=== PATIENT | female | born 1995 | race African-American/Black ===

== ENCOUNTER 2019-11-25 20:00 | Inpatient (IN) | payer OTHER ==
[2019-11-25] MEDS ORDERED: LACTATED RINGERS SOLUTION 1000 ML INFUS.BAG IV ONE (20:28)
[2019-11-25] MEDS ORDERED: ACETAMINOPHEN 1000 MG/100 ML VIAL (NON FORMULARY) IVPB ONE (20:28)
[2019-11-25] MEDS ORDERED: ACETAMINOPHEN INJECTION 100 ML IVPB ONE (20:34)
--- NOTE | 2019-11-25 21:07 | PDOC ---
Attending Attestation - Resident Resident Name: Zamzam Robins - ED Attending Attestation I have performed the following: I have examined & evaluated the patient, The case was reviewed & discussed with the resident, I agree w/resident's findings & plan, Exceptions are as noted - HPI HPI: 11/25/19 21:40 Ms Restrepo is a 24 yo F h/o congenital HIV (not currently of HAART per patient due to depression, unknown CD4 or Viral load) Pt 2 months s/p delivery of her child She is unable to see the child until she completes detox program Pt states she has had a cough x 2 weeks No fevers or chills No shortness of breath Pt noted fever today, nausea, vomiting and diarrhea No chest pain Mild lower abdominal pain No vaginal discharge No dysuria, no flank pain No headache 11/25/19 21:44 - Physicial Exam PE: 11/25/19 21:07 GENERAL: The patient is in no acute distress. ENT: Ears normal, nares patent, oropharynx clear without exudates. Moist mucous membranes. NECK: Normal range of motion, supple LUNGS: Breath sounds equal, clear to auscultation bilaterally. No wheezes, and no crackles. HEART:Regular rate and rhythm, normal S1 and S2 without murmur, rub or gallop. ABDOMEN: Soft, nontender, normoactive bowel sounds. EXTREMITIES: Normal range of motion, no edema. NEUROLOGICAL: Cranial nerves II through XII grossly intact. Normal speech. No focal neurological deficits. SKIN: Warm, Dry, normal turgor, no rashes or lesions noted. - Medical Decision Making 11/25/19 22:01 Laboratory Tests 11/25/19 11/25/19 11/25/19 21:00 21:00 21:00 WBC Hgb Hct Plt Count INR 0.96 VBG pH POC VBG pCO2 POC VBG pO2 BUN Creatinine Lactic Acid Troponin I < 0.02 Influenza A (Rapid) Positive A 11/25/19 11/25/19 11/25/19 21:00 21:00 21:00 WBC 7.4 Hgb 11.4 Hct 34.4 Plt Count 178 INR VBG pH POC VBG pCO2 POC VBG pO2 BUN 9.2 Creatinine 0.8 Lactic Acid 0.7 Troponin I Influenza A (Rapid) 11/25/19 21:00 WBC Hgb Hct Plt Count INR VBG pH 7.41 POC VBG pCO2 37.4 L POC VBG pO2 55.4 H BUN Creatinine Lactic Acid Troponin I Influenza A (Rapid) influenza (+) Will plan to Admit Clinical impression: HIV +, Influenza
[2019-11-25 21:21] LABS: BASO % 0.3 % (0-2.0); EOS % 0.9 % (0-4.5); HEMATOCRIT 34.4 % (32.4-45.2); HEMOGLOBIN 11.4 GM/dL (10.7-15.3); LYMPH % 48.1 % (8-40); MCH 30.8 pg (25.7-33.7); MEAN CELL VOLUME 93.6 fl (80-96); MEAN PLT VOLUME 8.3 fl (7.5-11.1); MONO % 17.2 % (3.8-10.2); NEUT % 33.5 % (42.8-82.8); PLATELET COUNT 178 K/MM3 (134-434); RBC 3.68 M/mm3 (3.60-5.2); RDW 14.6 % (11.6-15.6); WHITE BLOOD COUNT 7.4 K/mm3 (4.0-10.0)
[2019-11-25 21:24] LABS: VENOUS PC02 37.4 mmHg (38-52); VENOUS PH 7.41 (7.31-7.41); VENOUS PO2 55.4 mmHg (28-48)
[2019-11-25] MEDS ORDERED: ALBUTEROL SO4 0.083% IH SOL 2.5 MG/3 ML VIAL.NEB. NEB ONE ×2 (21:25→22:18)
--- NOTE | 2019-11-25 21:34 | PDOC ---
History of Present Illness - General Chief Complaint: Respiratory Stated Complaint: FEVER Time Seen by Provider: 11/25/19 20:18 History Source: Patient Exam Limitations: No Limitations - History of Present Illness Initial Comments: 11/25/19 21:30 24y F with PMH of HIV since , Asthma, substance use presenting to ED from [facility] for evaluation of fever, cough, congestion, sore throat, n/v/d. Patient states that for the past week she has been having cough and SOB but the n/v/d started this AM. Patient states that last night she drank a bottle of [employer] ice tea. She last used cocaine a few weeks ago and uses marijuana daily. She gave 2 months ago and was told that if she does not go to a detox program then she cannot see her son. She states that she stopped taking HAART after the of her son. Last recalls the viral load being 71. Had an appointment last month where viral load and CD4 counts were checked but she does not remember. Denies syncope, bloody stool, hematemesis, hemoptysis, urinary symptoms. PMD: PMH: see hpi PSH: Meds: none Allergies: nkda Social: cocaine, marijuana, alcohol Past History - Past Medical History Allergies/Adverse Reactions: Allergies Allergy/AdvReac Type Severity Reaction Status Date / Time No Known Allergies Allergy Verified 11/25/19 20:20 Home Medications: Ambulatory Orders Abacavir/Dolutegravir/Lamivudi [Triumeq Tablet] 1 each PO DAILY 11/25/19 Ferrous Sulfate [Iron] 325 mg PO BID 11/25/19 Quetiapine Fumarate [Seroquel -] 200 mg PO HS 11/25/19 Asthma: Yes COPD: No - Psycho Social/Smoking Cessation Hx Smoking History: Unknown if ever smoked Review of Systems - Review of Systems Constitutional: Yes: Chills, Fever, Weakness HEENTM: Yes: Nose Congestion, Throat Pain Respiratory: Yes: Cough, Shortness of Breath Cardiac (ROS): No: Chest Pain, Lightheadedness, Palpitations, Syncope ABD/GI: Yes: Diarrhea, Nausea, Vomiting : No: Symptoms Reported Musculoskeletal: No: Symptoms Reported Integumentary: No: Symptoms Reported Neurological: No: Symptoms reported Psychiatric: Yes: Depression *Physical Exam - Vital Signs Last Vital Signs Temp Pulse Resp BP Pulse Ox 100.2 F H 96 H 18 138/93 100 11/25/19 20:18 11/25/19 20:18 11/25/19 20:18 11/25/19 20:18 11/25/19 20:18 - Physical Exam General Appearance: Yes: Appropriately Dressed, Disheveled. No: Apparent Distress HEENT: positive: EOMI, BRANDON, Pharynx Normal. negative: Pharyngeal Erythema, Tonsillar Exudate, Tonsillar Erythema, Thrush Neck: positive: Trachea midline, Supple. negative: Lymphadenopathy (R), Lymphadenopathy (L) Respiratory/Chest: positive: Lungs Clear, Normal Breath Sounds. negative: Respiratory Distress, Crackles, Rales, Rhonchi, Stridor Cardiovascular: positive: Regular Rhythm, S1, S2, Tachycardia. negative: Edema , JVD, Murmur Vascular Pulses: Dorsalis-Pedis (R): 2+, Doralis-Pedis (L): 2+ Gastrointestinal/Abdominal: positive: Normal Bowel Sounds, Soft, Other ( cesearan scar, well healed). negative: Tender Extremity: positive: Normal Capillary Refill. negative: Pedal Edema, Swelling, Calf Tenderness Integumentary: positive: Normal Color, Dry, Warm. negative: Rash Neurologic: positive: watch train assembler II-XII NML intact, Fully Oriented, Alert, Normal Mood/ Affect, Normal Response, Motor Strength 03/27 ED Treatment Course - LABORATORY CBC & Chemistry Diagram: 11/25/19 21:00 11/25/19 21:00 - ADDITIONAL ORDERS Additional order review: Laboratory Results 11/25/19 21:00 VBG pH 7.41 POC VBG pCO2 37.4 L POC VBG pO2 55.4 H VBG HCO3 23.2 VBG O2 Sat (Anai) 87.3 H VBG Base Excess -0.6 11/25/19 21:00 RBC 3.68 MCV 93.6 MCHC 33.0 RDW 14.6 MPV 8.3 Neutrophils % 33.5 L Lymphocytes % 48.1 H Monocytes % 17.2 H Eosinophils % 0.9 Basophils % 0.3 - RADIOLOGY Radiology Studies Ordered: Category Date Time Status CHEST X-RAY PORTABLE* [RAD] Stat Radiology 11/25/19 20:27 Ordered - Medications Given in the ED: ED Medications Discontinued Medications Generic Name Dose Route Start Last Admin Trade Name Freq PRN Reason Stop Dose Admin Acetaminophen 1,000 mg 11/25/19 20:28 11/25/19 20:32 Ofirmev Injection - IVPB 11/25/19 20:29 1,000 mg ONCE ONE Administration Lactated Ringer's 1,000 ml 11/25/19 20:28 11/25/19 20:32 Lactated Ringers Solution IV 11/25/19 20:29 1,000 ml NOW ONE Administration Medical Decision Making - Medical Decision Making 11/25/19 23:46 24y F with PMH of HIV not compliant with medications, Asthma presenting to ED from [facility] for fever, cough, sore throat, n/v/d. vitals: documented fever of 100.4 at [facility], 100.2 here tachycardic in the 90s. saturating well on RA. ddx includes but not limited to influenza, pcp, cryptococcus, pna, meningitis/ encephalitis, uti, viral illness will obtain sepsis w/u, influenza, cd4 count. iv fluids, ofirmev, albuterol patient is not taking medications, can be immunocompromized, cd4 is a senddout. wbc wnl however low neutrophils. ekg: nsr at 70bpm. no rupesh or deperssions. no twi or hyperacute waves. sono for elevated lfts. unremarkable. pending admission, signed out to Dr. Irving Discharge - Discharge Information Problems reviewed: Yes Clinical Impression/Diagnosis: Influenza A HIV (human immunodeficiency virus infection) Qualifiers: HIV symptom status: unspecified Qualified Code(s): B20 - Human immunodeficiency virus [HIV] disease Condition: Stable - Follow up/Referral - Patient Discharge Instructions - Post Discharge Activity
[2019-11-25 21:54] LABS: INR 0.96 (0.83-1.09); PROTHROMBIN TIME (PATIENT) 11.3 SEC (9.7-13.0)
[2019-11-25 21:57] LABS: ACTIVATED PTT 28.3 SECONDS (25.2-36.5); ALBUMIN 3.4 g/dl (3.4-5.0); BILIRUBIN,TOTAL 0.3 mg/dL (0.2-1); BLOOD UREA NITROGEN 9.2 mg/dL (7-18); CALCIUM 8.4 mg/dL (8.5-10.1); CREATININE 0.8 mg/dL (0.55-1.3); TOT PROT 7.8 g/dl (6.4-8.2)
[2019-11-25 21:58] LABS: POTASSIUM 4.6 mmol/L (3.5-5.1)
[2019-11-25] MEDS ORDERED: OSELTAMIVIR PHOSPHATE 75 MG CAPSULE PO ONE (22:07)
[2019-11-25] MEDS ORDERED: OSELTAMIVIR PHOSPHATE 75 MG CAPSULE ONE (22:19)
[2019-11-25] MEDS ORDERED: VANCOMYCIN 1 GM in D5W (PRE-DOCKED) 1,000 MG/250 ML IVPB ONE (23:23)
[2019-11-25] MEDS ORDERED: PIPERACILLIN/TAZOB 3.375 GM 3.375 GM in DEXTROSE 5%-WATER - 50 ML IVPB ONE (23:23)
--- NOTE | 2019-11-25 23:44 | PN ---
Teaching Attending Note Name of Resident: Leonila Murdock ATTENDING PHYSICIAN STATEMENT I saw and evaluated the patient. I reviewed the resident's note and discussed the case with the resident. I agree with the resident's findings and plan as documented. SUBJECTIVE: Patient is a 24 year old woman with PMH of HIV since , Asthma and Substance abuse (cocaine, marijuana, alcohol) presenting to ER from [facility] for evaluation of fever, cough, congestion, sore throat, nausea, vomiting and diarrhea. Patient states that for the past week she has been having cough and SOB but the nausea, vomiting and diarrhea started this AM. Patient states that last night she drank a bottle of [employer] ice tea. She last used cocaine a few weeks ago and uses marijuana daily. She gave 2 months ago and was told that if she does not go to a detox program then she cannot see her son. She states that she stopped taking HAART after the of her son. Last recalls the viral load being 71. Had an appointment last month where viral load and CD4 counts were checked but she does not remember. Denies syncope, bloody stool, hematemesis, hemoptysis, urinary symptoms. OBJECTIVE: Alert Vital Signs Period Temp Pulse Resp BP Sys/Zamora Pulse Ox Last 24 Hr 100.2 F 96 18 138/93 100 HEENT: No Jaundice, eye redness or discharge, PERRLA, EOMI. Normocephalic, atraumatic. External ears are normal and hearing is grossly intact. No nasal discharge. Neck: Supple, nontender. No palpable adenopathy or thyromegaly. No JVD Chest: Good effort. Clear to auscultation and percussion. Heart: Regular. No S3, rub or murmur Abdomen: Not distended, soft, nontender and no HSM. No rebound or guarding. Normal bowel sounds. Ext: Peripheral pulses intact. No leg edema. Skin: Warm and dry. No petechiae, rash or ecchymosis. Neuro: Alert. Oriented x3. CN 2-12 grossly intact. Sensation grossly intact in all four extremities and DTR are symmetric. Psych: Appropriate mood and affect. Good insight. Current Medications Generic Name Dose Route Start Last Admin Trade Name Freq PRN Reason Stop Dose Admin Piperacillin Sod/Tazobactam 50 mls @ 100 mls/hr 11/25/19 23:23 Sod 3.375 gm/ Dextrose IVPB 11/25/19 23:52 ONCE ONE Protocol Home Medications Medication Instructions Recorded Abacavir/Dolutegravir/Lamivudi 1 each PO DAILY 11/25/19 [Triumeq Tablet] Ferrous Sulfate [Iron] 325 mg PO BID 11/25/19 Quetiapine Fumarate [Seroquel -] 200 mg PO HS 11/25/19 Abnormal Lab Results 11/25/19 11/25/19 11/25/19 21:00 21:00 21:00 Neutrophils % 33.5 L Lymphocytes % 48.1 H Monocytes % 17.2 H POC VBG pCO2 POC VBG pO2 VBG O2 Sat (Anai) Chloride 108 H Anion Gap 6 L Calcium 8.4 L AST 103 H ALT 90 H Influenza A (Rapid) Positive A 11/25/19 21:00 Neutrophils % Lymphocytes % Monocytes % POC VBG pCO2 37.4 L POC VBG pO2 55.4 H VBG O2 Sat (Anai) 87.3 H Chloride Anion Gap Calcium AST ALT Influenza A (Rapid) ASSESSMENT AND PLAN: 1. Influenza A Infection - No acute abnormality on CXR. Sepsis workup done. Urinalysis pending but here is no indication for antibiotics at this time. Started on Tamiflu and IV NS and placed on isolation. Will trend LFTs and get hepatitis serology. Upper abdominal sonogram showed mild hepatomegaly. Viral load and CD4 count pending. Will send any diarrheal stool for analysis including C.Diff, ova&parasites and cryptosporidium. EKG shows NSR with no significant changes. Will continue comprehensive care for all of patients comorbid conditions. 2. Alcohol/Drug abuse - Monitor closely for drug withdrawal. Implement [facility] alcohol withdrawal protocol and do neurochecks. Implement seizure, fall and aspiration precautions. Treat with thiamine and folic acid and monitor electrolytes (Ca,Mg,K,P). Counseled patient about abstaining from illicit drugs and alcohol. Will consult artillery specialist and refer to drug/alcohol detox upon discharge. 3. DVT prophylaxis - Lovenox 40 mg SQ q 24 hours. 4. Advance directives - Full code
[2019-11-25] MEDS ORDERED: PIPERACILLIN/TAZOB 3.375 GM 3.375 GM/50 ML BAG IVPB ONE (23:48)
[2019-11-26] MEDS ORDERED: VANCOMYCIN 1 GRAM (PRE-DOCKED) 1,000 MG/250 ML BAG IVPB ONE (00:45)
--- NOTE | 2019-11-26 00:47 | PDOC ---
*Physical Exam - Vital Signs Last Vital Signs Temp Pulse Resp BP Pulse Ox 100.2 F H 96 H 18 138/93 100 11/25/19 20:18 11/25/19 20:18 11/25/19 20:18 11/25/19 20:18 11/25/19 20:18 - Physical Exam MDM: 26 Nov 2019 00:46 AM Received sign out from resident Dr. Robins. In short, pt is a 24 y/o female presenting with fever w/ nausea, vomiting, diarrhea, cough, and SOB. URI symptoms for the past week. GI symptoms started this week. Flu A positive. Not septic. Received Vancomycin, Zosyn, and Tamiflu for anti infectives. Will f/u pending admission for influenza in setting of HIV. 26 Nov 2019 01:18 AM Telephone discussion with resident Dr. Chi. Verbally appraised of the pts HPI, ED course, and current plan of management. Will accept the pt to med/surg on observational status for attending Dr. Irvin. ED Treatment Course - LABORATORY CBC & Chemistry Diagram: 11/25/19 21:00 11/25/19 21:00 - ADDITIONAL ORDERS Additional order review: Laboratory Results 11/25/19 11/25/19 11/25/19 21:00 21:00 21:00 PT with INR INR PTT (Actin FS) VBG pH 7.41 POC VBG pCO2 37.4 L POC VBG pO2 55.4 H VBG HCO3 23.2 VBG O2 Sat (Anai) 87.3 H VBG Base Excess -0.6 Sodium 138 Potassium 4.6 Chloride 108 H Carbon Dioxide 24 Anion Gap 6 L BUN 9.2 Creatinine 0.8 Est GFR (CKD-EPI)AfAm 121.29 Est GFR (CKD-EPI)NonAf 104.65 Random Glucose 86 Lactic Acid 0.7 Calcium 8.4 L Total Bilirubin 0.3 AST 103 H ALT 90 H Alkaline Phosphatase 87 Troponin I Total Protein 7.8 Albumin 3.4 Serum , Qual 11/25/19 11/25/19 11/25/19 21:00 21:00 21:00 PT with INR 11.30 INR 0.96 PTT (Actin FS) 28.3 VBG pH POC VBG pCO2 POC VBG pO2 VBG HCO3 VBG O2 Sat (Anai) VBG Base Excess Sodium Potassium Chloride Carbon Dioxide Anion Gap BUN Creatinine Est GFR (CKD-EPI)AfAm Est GFR (CKD-EPI)NonAf Random Glucose Lactic Acid Calcium Total Bilirubin AST ALT Alkaline Phosphatase Troponin I < 0.02 Total Protein Albumin Serum , Qual Negative 11/25/19 21:00 RBC 3.68 MCV 93.6 MCHC 33.0 RDW 14.6 MPV 8.3 Neutrophils % 33.5 L Lymphocytes % 48.1 H Monocytes % 17.2 H Eosinophils % 0.9 Basophils % 0.3 - RADIOLOGY Radiograph Interpretation: RUQ U/S: THIS IS A PRELIMINARY REPORT FROM [facility] DATE OF SERVICE: 2019-11-25 23:33:57 IMAGES: 34 EXAM: ABDOMEN US -LIMITED HISTORY: Elevated LFTs, vomiting COMPARISON: None. FINDINGS: Mild hepatomegaly No echogenic gallstones, gallbladder wall thickening, or pericholecystic fluid Normal common bile duct The pancreas is unremarkable No echogenic calculi or hydronephrosis within the right kidney No ascites THIS DOCUMENT HAS BEEN ELECTRONICALLY SIGNED Jose Luis Lujan MD 11/26/2019 00:05 EST - Medications Given in the ED: ED Medications Discontinued Medications Generic Name Dose Route Start Last Admin Trade Name Freq PRN Reason Stop Dose Admin Acetaminophen 1,000 mg 11/25/19 20:28 11/25/19 20:32 Ofirmev Injection - IVPB 11/25/19 20:29 1,000 mg ONCE ONE Administration Albuterol Sulfate 1 amp 11/25/19 21:25 11/25/19 22:18 Ventolin 0.083% Nebulizer Soln - NEB 11/25/19 21:26 1 amp ONCE ONE Administration Piperacillin Sod/Tazobactam 50 mls @ 100 mls/hr 11/25/19 23:23 11/26/19 00:35 Sod 3.375 gm/ Dextrose IVPB 11/25/19 23:52 100 mls/hr ONCE ONE Administration Protocol Lactated Ringer's 1,000 ml 11/25/19 20:28 11/25/19 20:32 Lactated Ringers Solution IV 11/25/19 20:29 1,000 ml NOW ONE Administration Oseltamivir Phosphate 75 mg 11/25/19 22:07 11/25/19 22:18 Tamiflu - PO 11/25/19 22:08 75 mg ONCE ONE Administration Discharge - Discharge Information Problems reviewed: Yes Clinical Impression/Diagnosis: Influenza A HIV (human immunodeficiency virus infection) Qualifiers: HIV symptom status: unspecified Qualified Code(s): B20 - Human immunodeficiency virus [HIV] disease Condition: Stable - Admission Yes - Follow up/Referral - Patient Discharge Instructions - Post Discharge Activity
--- NOTE | 2019-11-26 01:56 | HP ---
CHIEF COMPLAINT: cough, vomiting/diarrhea HISTORY OF PRESENT ILLNESS: Ms. Restrepo is a 24y/o female with HIV (off HAART 2 months, unknown CD4, since ), asthma, and polysubstance use who presents from [facility] with cough x 2 weeks. She reports it is sometimes productive with whitish, yellowish, or brownish sputum. She has associated chest tightness with cough as well as shortness of breath. She denies wheezing. She reports fever and chills. She previously had sinus congestion and sore throat which are resolved. She also reports nausea, vomiting, and diarrhea that began the evening of the 3rd. She denies abdominal pain or blood in vomit or stool. She is unable to quantify the number of times she has vomited or had diarrhea. She was at [facility] for evaluation of alcohol, cocaine, and marijuana use. She reports she was told if she did not go to rehab that she would not be able to see her 2 month old son, Gage. She was upset by this and drank a bottle of [employer] iced tea but she does not normally drink alcohol. She smokes marijuana daily. Her last cocaine use was several weeks ago. Pt stopped HAART after the of her son 2 months ago. She could not state why she was not taking it. Her ID dr is in [place]. ER course was notable for: (1) influenza A positive (2) mild transaminitis with mild hepatomegaly (3) Tamiflu, Vancomycin, Zosyn PAST MEDICAL HISTORY: see above PAST SURGICAL HISTORY: Social History: Smoking: denies Alcohol: denies regular use Drugs: marijuana and cocaine Pt lives alone in apartment with son. The child is currently staying with the father. Allergies No Known Allergies Allergy (Verified 11/25/19 20:20) HOME MEDICATIONS: none REVIEW OF SYSTEMS see HPI PHYSICAL EXAMINATION Vital Signs - 24 hr 11/25/19 20:18 Temperature 100.2 F H Pulse Rate 96 H Respiratory 18 Rate Blood Pressure 138/93 O2 Sat by Pulse 100 Oximetry (%) GENERAL: Awake, alert, and fully oriented, in mild distress. HEAD: Normal with no signs of trauma. EYES: Pupils equal, round and reactive to light, extraocular movements intact, conjunctiva clear. EARS, NOSE, THROAT: Ears normal, nares patent, dry mucous membranes. NECK: Normal range of motion LUNGS: Right lower lobe expiratory wheezing. No accessory muscle use. HEART: Regular rate and rhythm, no murmur ABDOMEN: Soft, nontender, not distended, normoactive bowel sounds MUSCULOSKELETAL: Normal range of motion of extremities UPPER EXTREMITIES: Warm, well-perfused. No peripheral edema. LOWER EXTREMITIES: Warm, well-perfused. No peripheral edema. NEUROLOGICAL: Cranial nerves II-XII intact. Normal speech. PSYCHIATRIC: Tearful, anxious SKIN: Warm, dry, normal turgor Laboratory Results - last 24 hr 11/25/19 11/25/19 11/25/19 21:00 21:00 21:00 WBC RBC Hgb Hct MCV MCH MCHC RDW Plt Count MPV Absolute Neuts (auto) Neutrophils % Lymphocytes % Monocytes % Eosinophils % Basophils % Nucleated RBC % PT with INR 11.30 INR 0.96 PTT (Actin FS) 28.3 VBG pH POC VBG pCO2 POC VBG pO2 VBG HCO3 VBG O2 Sat (Anai) VBG Base Excess Sodium Potassium Chloride Carbon Dioxide Anion Gap BUN Creatinine Est GFR (CKD-EPI)AfAm Est GFR (CKD-EPI)NonAf Random Glucose Lactic Acid Calcium Total Bilirubin AST ALT Alkaline Phosphatase Troponin I < 0.02 Total Protein Albumin Serum , Qual Negative Influenza A (Rapid) Influenza B (Rapid) 11/25/19 11/25/19 11/25/19 21:00 21:00 21:00 WBC 7.4 RBC 3.68 Hgb 11.4 Hct 34.4 MCV 93.6 MCH 30.8 MCHC 33.0 RDW 14.6 Plt Count 178 MPV 8.3 Absolute Neuts (auto) 2.5 Neutrophils % 33.5 L Lymphocytes % 48.1 H Monocytes % 17.2 H Eosinophils % 0.9 Basophils % 0.3 Nucleated RBC % 0 PT with INR INR PTT (Actin FS) VBG pH POC VBG pCO2 POC VBG pO2 VBG HCO3 VBG O2 Sat (Anai) VBG Base Excess Sodium 138 Potassium 4.6 Chloride 108 H Carbon Dioxide 24 Anion Gap 6 L BUN 9.2 Creatinine 0.8 Est GFR (CKD-EPI)AfAm 121.29 Est GFR (CKD-EPI)NonAf 104.65 Random Glucose 86 Lactic Acid Calcium 8.4 L Total Bilirubin 0.3 AST 103 H ALT 90 H Alkaline Phosphatase 87 Troponin I Total Protein 7.8 Albumin 3.4 Serum , Qual Influenza A (Rapid) Positive A Influenza B (Rapid) Negative 11/25/19 11/25/19 21:00 21:00 WBC RBC Hgb Hct MCV MCH MCHC RDW Plt Count MPV Absolute Neuts (auto) Neutrophils % Lymphocytes % Monocytes % Eosinophils % Basophils % Nucleated RBC % PT with INR INR PTT (Actin FS) VBG pH 7.41 POC VBG pCO2 37.4 L POC VBG pO2 55.4 H VBG HCO3 23.2 VBG O2 Sat (Anai) 87.3 H VBG Base Excess -0.6 Sodium Potassium Chloride Carbon Dioxide Anion Gap BUN Creatinine Est GFR (CKD-EPI)AfAm Est GFR (CKD-EPI)NonAf Random Glucose Lactic Acid 0.7 Calcium Total Bilirubin AST ALT Alkaline Phosphatase Troponin I Total Protein Albumin Serum , Qual Influenza A (Rapid) Influenza B (Rapid) ASSESSMENT/PLAN: Ms. Restrepo is a 24y/o female with HIV (off HAART 2 months, unknown CD4, since ), asthma, and polysubstance use who presents from [facility] with cough x 2 weeks and n/v/d x 1 day. She was found to have influenza A. #influenza -Tamiflu 75mg BID x 5 days -duonebs QID -NS 100mL/hr -clear liquids #HIV -CD counts pending -ID consult- pt was in agreement in restarting HAART DVT Ppx Lovenox 40mg daily FEN NS 100mL/hr monitor labs clear liquids dispo med/surg once stable, can return to [facility] for rehab Visit type - Emergency Visit Emergency Visit: Yes ED Registration Date: 11/26/19 Care time: The patient presented to the Emergency Department on the above date and was hospitalized for further evaluation of their emergent condition. - New Patient This patient is new to me today: Yes Date on this admission: 11/26/19 - Critical Care Critical Care patient: No ATTENDING PHYSICIAN STATEMENT I saw and evaluated the patient. I reviewed the resident's note and discussed the case with the resident. I agree with the resident's findings and plan as documented. SUBJECTIVE: OBJECTIVE: ASSESSMENT AND PLAN:
[2019-11-26] MEDS ORDERED: ACETAMINOPHEN 1000 MG/100 ML VIAL (NON FORMULARY) IVPB PRN (03:27)
[2019-11-26 03:57] VITALS: BMI 25.8
[2019-11-26] MEDS: ALBUTEROL SO4 2.5/IPRATROPIUM 0.5 INH SOL 3 ML VIAL.NEB. NEB SCH ×5 (04:11→20:21)
[2019-11-26] MEDS ORDERED: guaiFENesin 200 MG/10 ML 10 ML UNIT-DOSE CUPS PO ONE (04:31)
[2019-11-26] MEDS: SODIUM CHLORIDE 1,000 ML IV SCH ×2 (05:03→16:34)
[2019-11-26] MEDS ORDERED: PT OWN MED DRAWER 7, Y5N ONE (09:59)
[2019-11-26] MEDS: OSELTAMIVIR PHOSPHATE 75 MG CAPSULE PO SCH ×2 (10:05→21:06)
[2019-11-26] MEDS: ENOXAPARIN NA (PORCINE) 40 MG/0.4 ML DISP.SYRIN SQ SCH (10:05)
[2019-11-26] MEDS ORDERED: ALBUTEROL SO4 2.5/IPRATROPIUM 0.5 INH SOL 3 ML VIAL.NEB. NEB PRN (13:11)
[2019-11-26] MEDS: ABACAVIR/DOLUTEGRAVIR/LAMIVUDI (TRIUMEQ) TABLET -NF PO SCH (13:20)
[2019-11-26] MEDS: QUEtiapine FUMARATE 100 MG TABLET (FP) PO SCH (13:30)
[2019-11-26] MEDS ORDERED: MELATONIN 5 MG TABLETS PO ONE (20:30)
--- NOTE | 2019-11-26 22:19 | PN ---
Physical Exam: 24 F h/o HIV (off HAART 2 months, unknown CD4, since ), asthma, ?mood disorder and polysubstance use who presents from [facility] with cough x 2 weeks. Patient found to be positive for Influenza A. CD4 status unknown, follows with ID specialist at [facility] unsure of last CD4 count, denies history of PCP and oral thrush. As per med history patient takes Triumeq and Seroquel 200mg daily. Patient started on Seroquel due to underlying mental instability, denies SI/HI/AH/VH but feels sad due to not being able to see her son (son is with biological father). Denies fevers or chills, tolerating PO. PE VSS GA AAox3, speaking in full sentences, mildly tearful HEENT NC/AT, EOMI, no oral thrush, dry MM Chest CTAB, no wheezing CVS S1, S2+, RRR ABd Soft, NT, ND, BS+ Ext No LE edema, no skin lesions or rashes Vital Signs - 24 hr 11/26/19 11/26/19 11/26/19 02:13 03:18 03:38 Temperature 98.5 F 98.5 F 98.5 F Pulse Rate 88 88 Pulse Rate [ 62 Right Apical] Respiratory 19 20 20 Rate Blood Pressure 136/96 136/96 Blood Pressure 115/62 [Left Arm] O2 Sat by Pulse 100 96 Oximetry (%) 11/26/19 11/26/19 11/26/19 04:00 06:54 10:05 Temperature 98.3 F 98.2 F Pulse Rate 69 57 L Pulse Rate [ Right Apical] Respiratory 20 20 Rate Blood Pressure 130/68 140/70 Blood Pressure [Left Arm] O2 Sat by Pulse 96 Oximetry (%) Microbiology 11/25/19 21:00 Blood Culture - Preliminary Blood - Peripheral Venous NO GROWTH OBTAINED AFTER 24 HOURS, INCUBATION TO CONTINUE FOR 4 DAYS. 11/25/19 21:00 Blood Culture - Preliminary Blood - Peripheral Venous NO GROWTH OBTAINED AFTER 24 HOURS, INCUBATION TO CONTINUE FOR 4 DAYS. Current Medications Generic Name Dose Route Start Last Admin Trade Name Freq PRN Reason Stop Dose Admin Abacavir/Dolutegravir/Lamivudine 1 each 11/26/19 12:15 11/26/19 13:20 Triumeq (Non-Formulary) PO 1 each DAILY JAKI Administration Acetaminophen 1,000 mg 11/26/19 03:27 Ofirmev Injection - IVPB Q6H PRN FEVER Albuterol/Ipratropium 1 amp 11/26/19 04:00 11/26/19 20:21 Duoneb - NEB 1 amp RQID JAKI Administration Albuterol/Ipratropium 1 amp 11/26/19 13:11 Duoneb - NEB Q4H PRN SHORTNESS OF BREATH Enoxaparin Sodium 40 mg 11/26/19 10:00 11/26/19 10:05 Lovenox - SQ 40 mg DAILY JAKI Administration Sodium Chloride 1,000 mls @ 100 mls/hr 11/26/19 03:30 11/26/19 16:34 Normal Saline - IV 11/27/19 13:29 100 mls/hr ASDIR JAKI Administration Oseltamivir Phosphate 75 mg 11/26/19 10:00 11/26/19 21:06 Tamiflu - PO 12/01/19 09:59 75 mg BID JAKI Administration Quetiapine Fumarate 200 mg 11/26/19 13:30 11/26/19 13:30 Seroquel - PO 200 mg DAILY JAKI Administration A/P: 24 F h/o HIV off HAART x2 months, unknown CD4, asthma, ?bipolar disorder, admitted for URI/influenza A positive. Improving clinically but patient becoming emotionally unstable. Influenza A On Tamiflu COnt. IV/PO hydration Notify family at home and [facility] of influenza A positive status HIV off HAART (at home) Started on Triumeq CD4 count, HIV viral load, pending No oral thrush or signs of opportunistic infections, will send [facility] to screen for PCP ID consult: Dr. Suarez ?Bipolar disorder patient AAOx3, knows surroundings, however gets emotionally unstable when talking to her son's father, endorses "I want to leave and see my son", then decides to stay. on Seroquel 200mg, restarted Psych consult: Dr. Gibbs DVT ppx: Lovenox SC FEN: PO hydration, monitor chem, regular diet Visit type - Emergency Visit Emergency Visit: Yes ED Registration Date: 11/26/19 Care time: The patient presented to the Emergency Department on the above date and was hospitalized for further evaluation of their emergent condition. - New Patient This patient is new to me today: Yes Date on this admission: 11/26/19 - Critical Care Critical Care patient: No - Discharge Referral Referred to [facility] No
--- NOTE | 2019-11-26 23:17 | EKG ---
Test Reason : Blood Pressure : / mmHG Vent. Rate : 070 BPM Atrial Rate : 070 BPM P-R Int : 144 ms QRS Dur : 086 ms QT Int : 412 ms P-R-T Axes : 015 075 035 degrees QTc Int : 444 ms NORMAL SINUS RHYTHM NORMAL ECG NO PREVIOUS ECGS AVAILABLE Confirmed by ZAINAB CARIAS MD ([id number]) on 11/26/2019 11:17:02 PM Referred By: Confirmed By:ZAINAB CARIAS MD
--- NOTE | 2019-11-27 00:23 | PN ---
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 Endorses sharp, substernal chest pain localized to midline. Sudden in onset, however patient endorses she has had this pain before. Denies palliative features. Vital signs BP 140/74 HR 76 RR 18 O2 99% room air Exam General: No acute distress, resting comfortably. Pulmonary: Good air entry bilaterally. negative wheezing, crackles. negative accessory muscles of respiration Cardiac: Regular S1, S2. No murmurs, rubs, gallops. Chest pain reproducible upon palpation of strernum. Gastrointestinal: soft, nontender, nondistended. Positive bowel sounds x4 quadrants. Extremities: 2+ pulses bilaterally. Negative edema bilateral lower extremities. Plan: EKG reveals normal sinus rhythm at 78BPM STAT Troponin 0,02 Given negative troponin and negative EKG changes, less likely concern for cardiac etiology; no indication for Telemetry transfer. Patient is not tachypnic, or tachycardic; low concern for pulmonary embolism Chest pain reproducible upon palpation; likely musculoskeletal in etiology. Upon re-evaluation patient noted to be sleeping comfortably; chest pain resolved.
[2019-11-27] MEDS: SODIUM CHLORIDE 1,000 ML IV SCH (07:17)
[2019-11-27] MEDS: ALBUTEROL SO4 2.5/IPRATROPIUM 0.5 INH SOL 3 ML VIAL.NEB. NEB SCH ×2 (07:45→11:39)
[2019-11-27] MEDS ORDERED: PT OWN MED DRAWER 7, Y5N ONE (09:34)
[2019-11-27] MEDS: OSELTAMIVIR PHOSPHATE 75 MG CAPSULE PO SCH (09:37)
[2019-11-27] MEDS: QUEtiapine FUMARATE 100 MG TABLET (FP) PO SCH (09:37)
[2019-11-27] MEDS: ABACAVIR/DOLUTEGRAVIR/LAMIVUDI (TRIUMEQ) TABLET -NF PO SCH (09:38)
[2019-11-27] MEDS: ENOXAPARIN NA (PORCINE) 40 MG/0.4 ML DISP.SYRIN SQ SCH (09:38)
[2019-11-27 11:02] VITALS: BP 120/80; PULSE 65; TEMP 98.8
[2019-11-27] MEDS ORDERED: QUEtiapine FUMARATE 100 MG TABLET (FP) PO SCH (12:02)
--- NOTE | 2019-11-27 17:02 | EKG ---
Test Reason : Blood Pressure : / mmHG Vent. Rate : 078 BPM Atrial Rate : 078 BPM P-R Int : 142 ms QRS Dur : 092 ms QT Int : 384 ms P-R-T Axes : 051 075 032 degrees QTc Int : 437 ms NORMAL SINUS RHYTHM NORMAL ECG WHEN COMPARED WITH ECG OF 25-NOV-2019 23:13, NO SIGNIFICANT CHANGE WAS FOUND Confirmed by ZAINAB CARIAS MD ([id number]) on 11/27/2019 5:02:02 PM Referred By: Confirmed By:ZAINAB CARIAS MD
== END 2019-11-27 12:46 | disposition left against medical advice (07) | DRG 113 ==
LOC: JER 20:00 → JERBED 11-26 00:47 → J8W 11-26 02:48 → OBSVTOIN 11-26 03:17
PROVIDERS: ADMIT Internal Medicine
DX: J10.1 Influenza due to other identified influenza virus with other respiratory manifestations (principal); Z21 Asymptomatic human immunodeficiency virus [HIV] infection status; R74.0 Nonspecific elevation of levels of transaminase and lactic acid dehydrogenase [LDH]; R16.0 Hepatomegaly, not elsewhere classified; R19.7 Diarrhea, unspecified; R11.2 Nausea with vomiting, unspecified; F10.10 Alcohol abuse, uncomplicated; F12.10 Cannabis abuse, uncomplicated; J45.909 Unspecified asthma, uncomplicated; F14.10 Cocaine abuse, uncomplicated; F31.9 Bipolar disorder, unspecified
CPT/HCPCS: 36415; 71045-TC-FY; 76705-TC; 80053; 82803; 83605; 84484; 84703; 85025; 85610; 85730; 86359; 86360; 87040; 87045; 87046; 87086; 87324; 87449; 87804; 93005; 93010; 94640; 99283-25; G0378; J0131; J7030